=== PATIENT | female | born 1990 ===

== ENCOUNTER → 2018-03-25 12:57 | Outpatient (REF) | payer OTHER, SELFPAY ==
[2018-03-25 13:10] LABS: Add Manual Diff / Slide Review NO; Basophils Percent Auto 0.3 % (0-2); Eosinophils Percent Auto 1.6 % (2-4); Hematocrit 36.7 % (36-46); Hemoglobin 12.5 g/dL (12.0-16.0); Lymphocytes Percent Auto 13.9 % (25-40); Mean Corpuscular Hemoglobin 28.2 PG (26-34); Mean Corpuscular Volume 83.2 fL (80-100); Monocytes Percent Auto 5.6 % (3-14); Neutrophils Absolute Auto 9200 /uL (1500-7000); Neutrophils Percent Auto 78.6 % (50-75); Platelet Count 165 X10^3/uL (150-400); Red Blood Cell Count 4.41 X10^6/uL (4.0-5.2); Red Cell Distribution Width 12.9 % (11.6-14.8)
[2018-03-25 13:35] LABS: Alanine Aminotransferase 22 IU/L (9-52); Aspartate Aminotransferase 27 IU/L (14-36); Blood Urea Nitrogen 9 mg/dL (7-17); Estimated Glomerular Filt Rate > 60.0 mL/min (>60); Uric Acid 5.6 mg/dL (2.5-6.2)
[2018-03-25 13:53] LABS: Creatinine Urine Random 22.8 mg/dL
[2018-03-25 14:02] LABS: Microalbumi Creatinin Ratio Ur 26.3 ug/mg CR (<30); Microalbumin Urine Random < 0.6 mg/dL (0-1.6)
[2018-03-25 14:08] LABS: White Blood Cell Count 11.6 X10^3/uL (4.5-11.0)
== END ==
LOC: LAB 12:57
PROVIDERS: Visit Provider Family Medicine
DX: O14.93 Unspecified pre-eclampsia, third trimester (principal); R68.89 Other general symptoms and signs; R74.0 Nonspecific elevation of levels of transaminase and lactic acid dehydrogenase [LDH]; R79.89 Other specified abnormal findings of blood chemistry
CPT/HCPCS: 36415; 82043; 82565; 82570; 84450; 84460; 84520; 84550; 85025